=== PATIENT | female | born 1965 | race Caucasian/White ===

== ENCOUNTER 2018-11-19 18:11 | Emergency (ER) | payer BC ==
--- NOTE | 2018-11-19 18:31 | RAD REPORT ---
EXAM DESCRIPTION: CT - Head Brain Wo Cont - 11/19/2018 6:25 pm CLINICAL HISTORY: HEADACHE Headache, drowsiness COMPARISON: No comparisons TECHNIQUE: All CT scans are performed using dose optimization technique as appropriate and may inclu de automated exposure control or mA/KV adjustment according to patient size. FINDINGS: No intracranial hemorrhage, hydrocephalus or extra-axial fluid collection.No areas of brai n edema or evidence of midline shift. The paranasal sinuses and mastoids are clear. The calvarium is intact. IMPRESSION: No acute intracranial abnormality.
[2018-11-19] MEDS ORDERED: NA CHLORIDE 0.9% 1,000 ML ONE (18:54)
[2018-11-19 18:56] LABS: Absolute Monocytes 0.6 K/uL (0.1-1.3); Absolute Neutrophil 5.2 K/uL (1.8-8.0); Basophils % 0.6 % (0-1.3); Eosinophils % 0.9 % (0-4.4); Hematocrit 41.6 % (36.0-45.0); Lymphocytes % 33.2 % (15.3-44.8); MPV 8.3 fL (7.6-11.3); Monocytes % 6.4 % (3.3-12.3); RBC Red Blood Cell Count 4.38 M/uL (3.86-4.86)
[2018-11-19 19:01] LABS: Protime INR 0.85
[2018-11-19 19:14] LABS: ALT/SGPT 33 U/L (12-78); AST/SGOT 18 U/L (15-37); Albumin 3.9 g/dL (3.4-5.0); Alkaline Phosphatase 88 U/L (45-117); BUN Blood Urea Nitrogen 12 mg/dL (7-18); Bicarbonate 25 mmol/L (21-32); Bilirubin Direct < 0.1 mg/dL (0-0.2); Bilirubin Total 0.3 mg/dL (0.2-1.0); Glucose Level 93 mg/dL (74-106); Magnesium 2.2 mg/dL (1.8-2.4); NT PRO-BNP 82 pg/mL (<125); Potassium 3.3 mmol/L (3.5-5.1); Protein, Total 7.2 g/dL (6.4-8.2); Sodium Level 140 mmol/L (136-145); Troponin (Emerg Dept Use Only) < 0.02 ng/mL (0.0-0.045)
--- NOTE | 2018-11-19 19:17 | RAD REPORT ---
EXAM DESCRIPTION: RAD - Chest Single View - 11/19/2018 7:02 pm CLINICAL HISTORY: COUGH Chest pain. COMPARISON: No comparisonsHead Brain Wo Cont dated 11/19/2018 FINDINGS: Portable technique limits examination quality. The lungs are grossly clear. The heart is upper limit of normal in size. No displaced fractures. IMPRESSION: No acute intrathoracic process suspected.
[2018-11-19] MEDS ORDERED: ONDANSETRON 4 MG/2 ML VIAL ONE (19:53)
--- NOTE | 2018-11-19 19:55 | RAD REPORT ---
EXAM DESCRIPTION: CT - Head angio - 11/19/2018 7:40 pm CLINICAL HISTORY: HEADACHE COMPARISON: Head Brain Wo Cont dated 11/19/2018 TECHNIQUE: CT angiography of the head was performed with MIPs. All CT scans are performed using dose optimization technique as appropriate and may include automated exposure control or mA/KV adjustment according to patient size. FINDINGS: No evidence of aneurysm is detected. No flow-limiting stenosis or vascular malformation id entified. Antegrade flow is seen in the vertebral arteries. The vertebral arteries are codominant. The visualized dural venous sinuses are patent. IMPRESSION: No significant flow abnormality is detected.
--- NOTE | 2018-11-19 20:36 | EDPHYS ---
Physician Documentation [facility] Name: Billie Barrientos Age: 53 yrs Sex: Female : 1965 Arrival Date: 11/19/2018 Time: 18:13 Bed 30 Private MD: ED Physician Charlie Puentes HPI: 11/19 18:57 This 53 yrs old Female presents to ER via Ambulatory with complaints of anita Headache, Vomiting. 18:57 The patient complains of pain to the left occipital area, left base of the skull, right anita occipital area and right base of the skull. The patient describes the headache as a pressure. Onset: The symptoms/episode began/occurred just prior to arrival. Associated signs and symptoms: Pertinent positives: nausea, vomiting. Severity of symptoms: At its worst the pain was moderate, severe, in the emergency department the pain has improved, moderately. Headache History: Denies prior headaches. The patient has not experienced similar symptoms in the past. 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 - Social history:: Smoking status: Patient/guardian denies using tobacco. - Ebola Screening: : Patient negative for fever greater than or equal to 101.5 degrees Fahrenheit, and additional compatible Ebola Virus Disease symptoms Patient denies exposure to infectious person Patient denies travel to an Ebola-affected area in the 21 days before illness onset No symptoms or risks identified at this time. - Family history:: not pertinent. ROS: 18:57 Constitutional: Negative for fever, chills, and weight loss, Eyes: Negative for injury, anita pain, redness, and discharge, ENT: Negative for injury, pain, and discharge, Neck: Negative for injury, pain, and swelling, Cardiovascular: Negative for chest pain, palpitations, and edema, Respiratory: Negative for shortness of breath, cough, wheezing, and pleuritic chest pain, Back: Negative for injury and pain, : Negative for injury, bleeding, discharge, and swelling, MS/Extremity: Negative for injury and deformity, Skin: Negative for injury, rash, and discoloration, Psych: Negative for depression, anxiety, suicide ideation, homicidal ideation, and hallucinations, Allergy/Immunology: Negative for hives, rash, and allergies, Endocrine: Negative for neck swelling, polydipsia, polyuria, polyphagia, and marked weight changes, Hematologic/Lymphatic: Negative for swollen nodes, abnormal bleeding, and unusual bruising. 18:57 Abdomen/GI: Positive for nausea and vomiting. Exam: 18:57 Constitutional: This is a well developed, well nourished patient who is awake, alert, anita and in no acute distress. Head/Face: Normocephalic, atraumatic. Eyes: Pupils equal round and reactive to light, extra-ocular motions intact. Lids and lashes normal. Conjunctiva and sclera are non-icteric and not injected. Cornea within normal limits. Periorbital areas with no swelling, redness, or edema. ENT: Nares patent. No nasal discharge, no septal abnormalities noted. Tympanic membranes are normal and external auditory canals are clear. Oropharynx with no redness, swelling, or masses, exudates, or evidence of obstruction, uvula midline. Mucous membranes moist. Neck: Trachea midline, no thyromegaly or masses palpated, and no cervical lymphadenopathy. Supple, full range of motion without nuchal rigidity, or vertebral point tenderness. No Meningismus. Chest/axilla: Normal chest wall appearance and motion. Nontender with no deformity. No lesions are appreciated. Cardiovascular: Regular rate and rhythm with a normal S1 and S2. No gallops, murmurs, or rubs. Normal PMI, no JVD. No pulse deficits. Respiratory: Lungs have equal breath sounds bilaterally, clear to auscultation and percussion. No rales, rhonchi or wheezes noted. No increased work of breathing, no retractions or nasal flaring. Back: No spinal tenderness. No costovertebral tenderness. Full range of motion. Skin: Warm, dry with normal turgor. Normal color with no rashes, no lesions, and no evidence of cellulitis. MS/ Extremity: Pulses equal, no cyanosis. Neurovascular intact. Full, normal range of motion. Neuro: Awake and alert, GCS 15, oriented to person, place, time, and situation. Cranial nerves II-XII grossly intact. Motor strength 5/5 in all extremities. Sensory grossly intact. Cerebellar exam normal. Normal gait. Psych: Awake, alert, with orientation to person, place and time. Behavior, mood, and affect are within normal limits. 18:57 Abdomen/GI: Inspection: abdomen appears normal, Bowel sounds: normal, Palpation: abdomen is soft and non-tender, Liver: no appreciated palpable abnormalities, Hernia: not appreciated. Vital Signs: 18:17 BP 143 / 82; Pulse 75; Resp 19; Temp 98.1; Pulse Ox 99% on R/A; Weight 77.11 kg; Height aj 5 ft. 4 in. (162.56 cm); 18:49 BP 132 / 76; Pulse 75; Resp 15; Pulse Ox 96% on R/A; sv 19:04 BP 129 / 66; Pulse 74; Resp 13 S; Pulse Ox 98% on R/A; Pain 5/10; jd3 20:10 BP 127 / 76; Pulse 79; Resp 15 S; Pulse Ox 99% on R/A; Pain 4/10; jd3 20:53 BP 126 / 76; Pulse 78; Resp 17 S; Pulse Ox 99% on R/A; Pain 5/10; jd3 18:17 Body Mass Index 29.18 (77.11 kg, 162.56 cm) MDM: 18:28 Patient medically screened. [facility] 19:03 Data reviewed: vital signs, nurses notes, lab test result(s), EKG, radiologic studies, anita CT scan, plain films. 20:08 Counseling: I had a detailed discussion with the patient and/or guardian regarding: lab pm1 results, radiology results. 20:33 Counseling: I had a detailed discussion with the patient and/or guardian regarding: the pm1 historical points, exam findings, and any diagnostic results supporting the discharge/admit diagnosis, the need for outpatient follow up, a neurologist, to return to the emergency department if symptoms worsen or persist or if there are any questions or concerns that arise at home. 11/19 18:29 Order name: Basic Metabolic Panel; Complete Time: 19:14 [facility] 11/19 18:29 Order name: CBC with Diff; Complete Time: 19:10 [facility] 11/19 18:29 Order name: LFT's; Complete Time: 19:14 [facility] 11/19 18:29 Order name: Magnesium; Complete Time: 19:14 [facility] 11/19 18:29 Order name: NT PRO-BNP; Complete Time: 19:14 [facility] 11/19 18:29 Order name: PT-INR; Complete Time: 19:10 [facility] 11/19 18:19 Order name: CT Head Brain wo Cont; Complete Time: 18:41 11/19 18:29 Order name: Troponin (emerg Dept Use Only); Complete Time: 19:14 [facility] 11/19 18:29 Order name: XRAY Chest (1 view); Complete Time: 19:30 [facility] 11/19 18:31 Order name: CT Head Angio; Complete Time: 20:02 [facility] 11/19 18:29 Order name: EKG; Complete Time: 18:32 [facility] 11/19 18:29 Order name: Cardiac monitoring; Complete Time: 18:44 [facility] 11/19 18:29 Order name: EKG - Nurse/Tech; Complete Time: 18:44 [facility] 11/19 18:29 Order name: IV Saline Lock; Complete Time: 18:44 [facility] 11/19 18:29 Order name: Labs collected and sent; Complete Time: 18:44 [facility] 11/19 18:29 Order name: O2 Per Protocol; Complete Time: 18:44 [facility] 11/19 18:29 Order name: O2 Sat Monitoring; Complete Time: 18:44 [facility] 11/19 19:15 Order name: PO challenge: juice; Complete Time: 19:46 [facility] Administered Medications: 18:45 Drug: NS 0.9% 1000 ml Route: IV; Rate: 1 bolus; Site: right antecubital; sv 19:45 Follow up: Response: No adverse reaction; IV Status: Completed infusion; IV Intake: jd3 1000ml 19:46 Not Given (Patient Refused): Zofran 4 mg IVP once; over 2 minutes jd3 Disposition: 11/20 07:18 Co-signature as Attending Physician, Charlie Puentes MD I agree with the assessment and [facility] plan of care. Disposition: 11/19/18 20:35 Discharged to Home. Impression: Headache, Occipital neuralgia. - Condition is Stable. - Discharge Instructions: General Headache Without Cause, Occipital Neuralgia. - Medication Reconciliation Form, Thank You Letter, Antibiotic Education, Prescription Opioid Use form. - Follow up: Emergency Department; When: As needed; Reason: Worsening of condition. Follow up: Private Physician; When: 2 - 3 days; Reason: Recheck today's complaints, Continuance of care, Re-evaluation by your physician. - Problem is new. - Symptoms have improved. Signatures: Dispatcher [employer] [facility] Bridgett Hermosillo, RN RN Flaca Adams RN Charlie Hudson MD MD cha Marinas, Patrick, SIOBHAN GATHERING MACHINE FEEDER pm1 Yong Bay, RN RN jd3 Corrections: (The following items were deleted from the chart) 11/19 19:02 18:36 Brain Wo Cont+MRI.RAD.BRZ ordered. [facility] 20:55 20:35 11/19/2018 20:35 Discharged to Home. Impression: Headache; Occipital neuralgia. jd3 Condition is Stable. Forms are Medication Reconciliation Form, Thank You Letter, Antibiotic Education, Prescription Opioid Use. Follow up: Emergency Department; When: As needed; Reason: Worsening of condition. Follow up: Private Physician; When: 2 - 3 days; Reason: Recheck today's complaints, Continuance of care, Re-evaluation by your physician. Problem is new. Symptoms have improved. pm1
--- NOTE | 2018-11-19 20:36 | ER ---
Nurse's Notes [facility] Name: Billie Barrientos Age: 53 yrs Sex: Female : 1965 Arrival Date: 11/19/2018 Time: 18:13 Bed 30 Private MD: Diagnosis: Headache;Occipital neuralgia Presentation: 11/19 18:16 Presenting complaint: Patient states: Sudden onset sharp headache to back of head after aj vomiting today at 1735. 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 Transition of care: patient was not received from another setting of care. Onset of symptoms was November 19, 2018. Risk Assessment: Do you want to hurt yourself or someone else? Patient reports no desire to harm self or others. Initial Sepsis Screen: Does the patient meet any 2 criteria? No. Patient's initial sepsis screen is negative. Does the patient have a suspected source of infection? No. Patient's initial sepsis screen is negative. Care prior to arrival: None. 18:16 Method Of Arrival: Ambulatory 18:16 Acuity: EDILMA 2 aj Triage Assessment: 18:17 Headache History: Denies prior headaches. General: Appears in no apparent distress. aj comfortable, Behavior is calm, cooperative, appropriate for age. Pain: Complains of pain in scalp. Neuro: Level of Consciousness is awake, alert, obeys commands, Oriented to person, place, time, situation, Appropriate for age. Respiratory: Airway is patent Respiratory effort is even, unlabored, Respiratory pattern is regular, symmetrical. Derm: Skin is intact, is healthy with good turgor, Skin is pink, warm \T\ dry. normal. 19:04 Pain: Also complains of no other associated symptoms. 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 - Social history:: Smoking status: Patient/guardian denies using tobacco. - Ebola Screening: : Patient negative for fever greater than or equal to 101.5 degrees Fahrenheit, and additional compatible Ebola Virus Disease symptoms Patient denies exposure to infectious person Patient denies travel to an Ebola-affected area in the 21 days before illness onset No symptoms or risks identified at this time. - Family history:: not pertinent. Screenin:40 Abuse screen: Denies threats or abuse. Denies injuries from another. Nutritional sv screening: No deficits noted. Tuberculosis screening: No symptoms or risk factors identified. Fall Risk None identified. Assessment: 18:35 General: Appears in no apparent distress. uncomfortable, well developed, Behavior is sv calm, cooperative, appropriate for age. General: Reports that she was outside using a leaf blower and went back inside and about 10 minutes later vomited and had a sudden onset of an occipital headache. Pain: Complains of pain in occipital area and base of the skull Pain radiates to left parietal area, right parietal area, left frontal area, left side of forehead, right frontal area and right side of forehead Pain currently is 8 out of 10 on a pain scale. Pain began 1 hour ago. Is continuous. Neuro: Level of Consciousness is awake, alert, obeys commands, Oriented to person, place, time, situation, Supervisor [employer] are equal bilaterally Moves all extremities. Full function Speech is normal, Facial symmetry appears normal, Facial symmetry: tongue is midline, Pupils are PERRLA, Reports headache parietal area, frontal area, occipital area, weakness Denies blurred vision dizziness, numbness photophobia diplopia. Respiratory: Airway is patent Respiratory effort is even, unlabored, Respiratory pattern is regular, symmetrical. GI: Reports vomiting. Derm: Skin is intact, Skin is dry, Skin is pink, warm \T\ dry. Skin temperature is warm. Musculoskeletal: Range of motion: intact in all extremities. 19:01 Reassessment: nurse offered pt to ask provider for pain medication. pt refused. Patient jd3 states feeling better. General: Appears in no apparent distress. uncomfortable, Behavior is calm, cooperative, appropriate for age. Pain: Complains of pain in head Pain currently is 5 out of 10 on a pain scale. Neuro: Level of Consciousness is awake, alert, obeys commands, Oriented to person, place, time, situation, Speech is normal, Facial symmetry appears normal. Cardiovascular: Capillary refill < 3 seconds Patient's skin is warm and dry. Respiratory: Airway is patent Respiratory effort is even, unlabored, Respiratory pattern is regular, symmetrical. GI: Reports vomiting prior to arrival to ER. Patient currently denies nausea. : No signs and/or symptoms were reported regarding the genitourinary system. EENT: No signs and/or symptoms were reported regarding the EENT system. Derm: Skin is intact, Skin is dry, Skin is normal, Skin temperature is warm. Musculoskeletal: Circulation, motion, and sensation intact. Range of motion: intact in all extremities. 20:10 Reassessment: Patient appears in no apparent distress at this time. Patient and/or d3 family updated on plan of care and expected duration. Pain level reassessed. Patient is alert, oriented x 3, equal unlabored respirations, skin warm/dry/pink. reports continued headache refused pain medication. 20:52 Reassessment: Patient appears in no apparent distress at this time. No changes from jd3 previously documented assessment. Patient and/or family updated on plan of care and expected duration. Pain level reassessed. Patient is alert, oriented x 3, equal unlabored respirations, skin warm/dry/pink. reported understanding of discharge instructions. Vital Signs: 18:17 BP 143 / 82; Pulse 75; Resp 19; Temp 98.1; Pulse Ox 99% on R/A; Weight 77.11 kg; Height aj 5 ft. 4 in. (162.56 cm); 18:49 BP 132 / 76; Pulse 75; Resp 15; Pulse Ox 96% on R/A; sv 19:04 BP 129 / 66; Pulse 74; Resp 13 S; Pulse Ox 98% on R/A; Pain 5/10; jd3 20:10 BP 127 / 76; Pulse 79; Resp 15 S; Pulse Ox 99% on R/A; Pain 4/10; jd3 20:53 BP 126 / 76; Pulse 78; Resp 17 S; Pulse Ox 99% on R/A; Pain 5/10; jd3 18:17 Body Mass Index 29.18 (77.11 kg, 162.56 cm) ED Course: 18:13 Patient arrived in ED. ds1 18:17 Triage completed. aj 18:18 Arm band placed on left wrist. Patient placed in an exam room. aj 18:22 Bridgett Hermosillo, SUSANNA is Primary Nurse. sv 18:28 Charlie Puentes MD is Attending Physician. anita 18:31 CT Head Brain wo Cont In Process Unspecified. EDMS 18:32 Radiology exam delayed due to lab results not completed at this time. (BUN/Creatinine). vm2 18:40 Patient has correct armband on for positive identification. Placed in gown. Bed in low sv position. Call light in reach. Adult w/ patient. radiation monitor on. Pulse ox on. NIBP on. Door closed. Head of bed elevated. 18:40 Initial lab(s) drawn, by me, sent to lab. Inserted saline lock: 20 gauge in right sv antecubital area, using aseptic technique. Blood collected. Flushed right antecubital with 5 ml normal saline. 18:[address] Scan. sv 18:58 Primary Nurse role handed off by Bridgett Hermosillo RN sv 18:58 Report given to Yong MULLINS. sv 18:58 X-ray(s) taken. sv 19:01 Yong Bay RN is Primary Nurse. jd3 19:02 XRAY Chest (1 view) In Process Unspecified. EDMS 19:06 Valeriy Littlejohn [facility]. pm1 19:[address] via wheelchair. nj 19:39 CT completed. Patient tolerated procedure well. Patient moved back from CT. nj 19:42 CT Head Angio In Process Unspecified. EDMS 20:54 No provider procedures requiring assistance completed. IV discontinued, intact, jd3 bleeding controlled, No redness/swelling at site. Pressure dressing applied. Administered Medications: 18:45 Drug: NS 0.9% 1000 ml Route: IV; Rate: 1 bolus; Site: right antecubital; sv 19:45 Follow up: Response: No adverse reaction; IV Status: Completed infusion; IV Intake: jd3 1000ml 19:46 Not Given (Patient Refused): Zofran 4 mg IVP once; over 2 minutes jd3 Intake: 19:45 IV: 1000ml; Total: 1000ml. jd3 Outcome: 20:35 Discharge ordered by . pm1 20:54 Discharged to home ambulatory, with family. jd3 20:54 Condition: stable 20:54 Discharge instructions given to patient, family, Instructed on discharge instructions, follow up and referral plans. Demonstrated understanding of instructions, follow-up care. 20:55 Patient left the ED. jd3 Signatures: Dispatcher [employer] EDMS Bridgett Hermosillo RN RN sv Myers, Amanda, RN RN aj Anderson, Corey, MD MD cha Sanford, Demi ds1 Valeriy Littlejohn NP BUSINESS ANALYSIS ANALYST pm1 Eldon Lorenzo Victoria 2 Yogn Bay RN RN jd3 Corrections: (The following items were deleted from the chart) 19:02 18:58 In radiology for Brain Wo Cont+MRI.RAD.BRZ. EDMS EDMS 19:48 19:01 GI: Reports vomiting prior to arrival to ER. jd3 jd3 20:53 20:10 Reassessment: Patient appears in no apparent distress at this time. Patient jd3 and/or family updated on plan of care and expected duration. Pain level reassessed. Patient is alert, oriented x 3, equal unlabored respirations, skin warm/dry/pink. Patient states feeling better. jd3 20:53 20:52 Reassessment: Patient appears in no apparent distress at this time. Patient jd3 and/or family updated on plan of care and expected duration. Pain level reassessed. Patient is alert, oriented x 3, equal unlabored respirations, skin warm/dry/pink. jd3
--- NOTE | 2018-11-20 07:16 | EKG ---
Test Date: 2018-11-19 Test Time: 18:44:09 Python Java Developer: CINDYT MEASUREMENT RESULTS: Intervals: Rate: 76 NE: 162 QRSD: 82 QT: 410 QTc: 461 Thrall: P: 57 NE: 162 QRS: 23 T: 3 INTERPRETIVE STATEMENTS: Normal sinus rhythm ST & T wave abnormality, consider anterior ischemia Prolonged QT Abnormal ECG No previous ECG available for comparison Electronically Signed On 11-20-18 07:15:35 CDT by Suresh Ochoa
== END 2018-11-19 20:55 | disposition home or self-care (01) ==
LOC: ER 18:11
DX: M54.81 Occipital neuralgia (principal)
CPT/HCPCS: 36415; 70450; 70496; 71045; 80048; 80076; 83735; 83880; 84484; 85025; 85610; 93005; 96360; 99285; J2405; J7030; Q9967